=== PATIENT | male | born 1995 | race African-American/Black ===

== ENCOUNTER 2023-07-15 08:40 | Emergency (ER) | payer BC ==
[2023-07-15 08:52] VITALS: BP 110/75; PULSE 82; RESP 20; TEMP 98; BMI 25.8
[2023-07-15] MEDS ORDERED: KETOROLAC TROMETHAMINE 15 MG/ML VIAL ONE (09:47)
[2023-07-15] MEDS ORDERED: DEXAMETHASONE SOD PHOSPHATE 10 MG/1 ML VIAL ONE (09:47)
[2023-07-15] MEDS: DEXAMETHASONE SOD PHOSPHATE 10 MG/1 ML VIAL IVPUSH ONE (09:53)
[2023-07-15] MEDS: KETOROLAC TROMETHAMINE 15 MG/ML VIAL IM ONE (09:53)
== END 2023-07-15 10:14 | disposition home or self-care (01) ==
LOC: JERFT 08:40 → JER 08:40 → JERFT 10:14
PROC: 3E033NZ Introduction of Analgesics, Hypnotics, Sedatives into Peripheral Vein, Percutaneous Approach (ICD-10-PCS; principal; 2023-07-15)
PROC: 3E0233Z Introduction of Anti-inflammatory into Muscle, Percutaneous Approach (ICD-10-PCS; 2023-07-15)
DX: J02.9 Acute pharyngitis, unspecified (principal); Z20.822 Contact with and (suspected) exposure to COVID-19
CPT/HCPCS: 0241U-QW; 87651; 99284-25; J1100

== ENCOUNTER 2023-08-14 18:33 | Emergency (ER) | payer BC ==
[2023-08-14 19:00] VITALS: BP 125/83; PULSE 70; RESP 15; TEMP 97.9; BMI 26.6
[2023-08-14] MEDS ORDERED: CIPROFLOXACIN 250 MG TABLET (RESTRICTED TO ID) PO ONE (19:04)
[2023-08-14] MEDS: CIPROFLOXACIN 500 MG TABLET (RESTRICTED TO ID) PO ONE (19:05)
== END 2023-08-14 19:08 | disposition home or self-care (01) ==
LOC: FER 18:33
DX: Z20.811 Contact with and (suspected) exposure to meningococcus (principal)
CPT/HCPCS: 99283-25